=== PATIENT | female | born 1980 | race Caucasian/White ===

== ENCOUNTER 2019-05-19 14:21 | Emergency (ER) | payer OTHER ==
[~2019-05-19] VITALS: Ht 167.6 cm; Wt 54.9 kg
[2019-05-19] MEDS ORDERED: AMOX TR-K250 MG/5 M PO (14:35)
[2019-05-19] MEDS ORDERED: TUSNEL CAPLET1 EACH PO (14:36)
[2019-05-19] MEDS ORDERED: DOLOGESIC 500-1 EACH PO (14:36)
[2019-05-19] MEDS ORDERED: MEDROLPACK PO (17:50)
== END 2019-05-19 20:49 | disposition home or self-care (01) ==
LOC: ER 14:21
DX: B27.80 Other infectious mononucleosis without complication (principal); R59.0 Localized enlarged lymph nodes; M54.2 Cervicalgia
CPT/HCPCS: 70460; 70491; Q9965